=== PATIENT | male | born 1990 ===

== ENCOUNTER 2021-07-11 12:23 | Emergency (ER) | payer SELFPAY ==
--- NOTE | 2021-07-11 13:38 | XRay Report ---
XR forearm LT, XR elbow 3+V LT INDICATION / CLINICAL INFORMATION: left arm injury. COMPARISON: None available. FINDINGS: Left elbow: No acute fracture or malalignment. No significant joint effusion. There is evidence of so ft tissue injury involving the medial forearm/elbow. No radiopaque foreign body identified. Left forearm: Evidence of soft tissue injury of the proximal to mid medial forearm. Overlying bandagi ng material is present. There is no radiopaque foreign body. No acute fracture or malalignment. IMPRESSION: Evidence of soft tissue injury involving the medial proximal to mid forearm. No radiopaque foreign jono dy. No acute fracture. Signer Name: Rene Jain MD Signed: 07/11/2021 1:34 PM Workstation Name: [id number]
[2021-07-11] MEDS ORDERED: SODIUM CHLORIDE 0.9% 500 ML IVPB IRRIGATION STA (14:36)
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
[2021-07-11] MEDS ORDERED: LIDOCAINE (1%) 10 MG/1 ML VIAL 20 ML MDV INFILTRATI NR (14:45)
[2021-07-11] MEDS ORDERED: SODIUM CHLORIDE IRRI 500 ML 500 ML IR ONE (14:50)
[2021-07-11] MEDS ORDERED: TETANUS,DIPH,PERTUSS(ACELL) VACCINE 0.5 ML SYRINGE IM ONE (15:15)
[2021-07-11 16:26] VITALS: BP 121/78
== END 2021-07-11 16:26 | disposition home or self-care (01) ==
LOC: ED 12:23
DX: S41.112A Laceration without foreign body of left upper arm, initial encounter (principal); F17.200 Nicotine dependence, unspecified, uncomplicated; V19.9XXA Pedal cyclist (driver) (passenger) injured in unspecified traffic accident, initial encounter; Y93.89 Activity, other specified; Y92.89 Other specified places as the place of occurrence of the external cause; Y99.8 Other external cause status
CPT/HCPCS: 90471; 90715; 99283